=== PATIENT | female | born 1960 | race Caucasian/White ===

== ENCOUNTER → 2024-02-16 | Outpatient (CLI) | payer MEDICARE, OTHER ==
[2024-02-16 13:47] LABS: BASO # 0.1 10^3/uL (0.0-0.2); BASO % 0.9 % (0.0-1.0); EOS # 0.3 10^3/uL (0.0-0.5); EOS % 4.5 % (0.0-3.0); HEMATOCRIT 41.3 % (36.0-47.0); HEMOGLOBIN 13.7 g/dl (12.0-15.5); LYMPH # 1.7 10^3/uL (1.5-5.0); MEAN CORPUSCULAR HEMOGLOBIN 28.8 pg (27.0-33.0); MEAN CORPUSCULAR HGB CONC 33.2 g/dl (32.0-36.5); MEAN CORPUSCULAR VOLUME 86.9 fl (80.0-96.0); MONO # 0.7 10^3/uL (0.0-0.8); MONO % 10.9 % (2.0-8.0); NEUTROPHILS # 3.8 10^3/uL (1.5-8.5); NEUTROPHILS % 56.5 % (36.0-66.0); PLATELET COUNT, AUTOMATED 256 10^3/uL (150-450); RED BLOOD COUNT 4.75 10^6/uL (4.00-5.40); WHITE BLOOD COUNT 6.7 10^3/uL (4.0-10.0)
[2024-02-16 14:02] LABS: HEMOGLOBIN A1c 7.3 % (4.0-6.0)
[2024-02-16 14:12] LABS: ALBUMIN 3.9 G/DL (3.2-5.2); ALKALINE PHOSPHATASE 83 U/L (46-116); ALT/SGPT 68 U/L (7.0-40); AST/SGOT 58 U/L (<34); BILIRUBIN,TOTAL 0.7 MG/DL (0.3-1.2); BLOOD UREA NITROGEN 15 MG/DL (9-23); CALCIUM LEVEL 10.1 MG/DL (8.3-10.6); CARBON DIOXIDE LEVEL 25 MMOL/L (20-31); CHLORIDE LEVEL 105 MMOL/L (98-107); CHOLESTEROL LEVEL 119 MG/DL (<200); CHOLESTEROL RISK RATIO 2.81 (<5); CREATININE FOR GFR 0.91 MG/DL (0.55-1.30); GLOMERULAR FILTRATION RATE > 60.0 (>45); GLUCOSE, FASTING 114 MG/DL (74-106); HDL CHOLESTEROL 42.3 MG/DL (>40); LDL CHOLESTEROL 40.1 MG/DL (<100); NON-HDL-C 76.7 MG/DL; POTASSIUM SERUM 4.5 MMOL/L (3.5-5.1); SODIUM LEVEL 137 MMOL/L (136-145); TOTAL PROTEIN 7.1 G/DL (5.7-8.2); TRIGLYCERIDES LEVEL 183 MG/DL (<150)
[2024-02-16 14:15] LABS: FREE T4 1.05 NG/DL (0.89-1.76); THYROID STIMULATING HORMONE 0.977 uIU/ML (0.55-4.78)
[2024-02-16 14:16] LABS: TOTAL 25(OH) VITAMIN D 46.8 NG/ML (20.0-100.0)
[2024-02-16 14:17] LABS: VITAMIN B12 LEVEL 1470 PG/ML (211-911)
[2024-02-16 15:47] LABS: CREATININE, URINE 79.4 MG/DL; MALB URINE SIEMENS < 3.0 MG/L; MAU/CREAT RATIO 3.7 MCG/MG (0.0-30.0)
== END ==
LOC: M PLALAB 11:45
PROVIDERS: ATTEND Student in an Organized Health Care Education/Training Program
DX: Z76.89 Persons encountering health services in other specified circumstances (principal); E11.9 Type 2 diabetes mellitus without complications; E03.9 Hypothyroidism, unspecified; I10 Essential (primary) hypertension; E53.8 Deficiency of other specified B group vitamins; E55.9 Vitamin D deficiency, unspecified

== ENCOUNTER → 2024-03-15 | Outpatient (REF) | payer MEDICARE, OTHER | LOC: M SFHCPLAZ 10:20 | PROVIDERS: ATTEND Student in an Organized Health Care Education/Training Program | DX: Z00.00 Encounter for general adult medical examination without abnormal findings (principal) ==

== ENCOUNTER → 2024-04-03 | Outpatient (CLI) | payer MEDICARE, OTHER | LOC: M WHC 15:21 | PROVIDERS: ATTEND Student in an Organized Health Care Education/Training Program | DX: Z12.31 Encounter for screening mammogram for malignant neoplasm of breast (principal) ==

== ENCOUNTER → 2024-05-23 | Outpatient (REF) | payer MEDICARE, OTHER | LOC: M SFHCPLAZ 17:05 | PROVIDERS: ATTEND Physician Assistant Medical | DX: R30.0 Dysuria (principal) ==

== ENCOUNTER → 2024-06-19 | Outpatient (CLI) | payer MEDICARE, OTHER ==
[2024-06-19 13:34] LABS: BASO # 0.1 10^3/uL (0.0-0.2); BASO % 0.8 % (0.0-1.0); EOS # 0.2 10^3/uL (0.0-0.5); EOS % 2.9 % (0.0-3.0); HEMATOCRIT 41.9 % (36.0-47.0); HEMOGLOBIN 13.9 g/dl (12.0-15.5); LYMPH # 2.6 10^3/uL (1.5-5.0); LYMPH % 40.3 % (24.0-44.0); MEAN CORPUSCULAR HEMOGLOBIN 28.8 pg (27.0-33.0); MEAN CORPUSCULAR HGB CONC 33.2 g/dl (32.0-36.5); MEAN CORPUSCULAR VOLUME 86.9 fl (80.0-96.0); MONO # 0.6 10^3/uL (0.0-0.8); MONO % 9.3 % (2.0-8.0); NEUTROPHILS # 2.9 10^3/uL (1.5-8.5); NEUTROPHILS % 45.5 % (36.0-66.0); PLATELET COUNT, AUTOMATED 297 10^3/uL (150-450); RED BLOOD COUNT 4.82 10^6/uL (4.00-5.40); WHITE BLOOD COUNT 6.5 10^3/uL (4.0-10.0)
[2024-06-19 14:00] LABS: CREATININE, URINE 88.9 MG/DL
[2024-06-19 14:01] LABS: MALB URINE SIEMENS < 3.0 MG/L; MAU/CREAT RATIO 3.3 MCG/MG (0.0-30.0)
[2024-06-19 14:02] LABS: ALKALINE PHOSPHATASE 74 U/L (46-116); ALT/SGPT 54 U/L (7.0-40); AST/SGOT 34 U/L (<34); BILIRUBIN,TOTAL 0.6 MG/DL (0.3-1.2); BLOOD UREA NITROGEN 12 MG/DL (9-23); CALCIUM LEVEL 9.6 MG/DL (8.3-10.6); CARBON DIOXIDE LEVEL 24 MMOL/L (20-31); CHLORIDE LEVEL 107 MMOL/L (98-107); CHOLESTEROL LEVEL 226 MG/DL (<200); CHOLESTEROL RISK RATIO 5.96 (<5); GLOMERULAR FILTRATION RATE > 60.0 (>45); GLUCOSE, FASTING 145 MG/DL (74-106); HDL CHOLESTEROL 37.9 MG/DL (>40); NON-HDL-C 188.1 MG/DL; POTASSIUM SERUM 4.7 MMOL/L (3.5-5.1); SODIUM LEVEL 138 MMOL/L (136-145); TOTAL PROTEIN 7.1 G/DL (5.7-8.2); TRIGLYCERIDES LEVEL 433 MG/DL (<150)
[2024-06-19 14:36] LABS: HEMOGLOBIN A1c 7.5 % (4.0-6.0)
== END ==
LOC: M PLALAB 09:14
PROVIDERS: ATTEND Student in an Organized Health Care Education/Training Program
DX: Z00.00 Encounter for general adult medical examination without abnormal findings (principal); K76.0 Fatty (change of) liver, not elsewhere classified; N75.0 Cyst of Bartholin's gland; L57.0 Actinic keratosis; E11.9 Type 2 diabetes mellitus without complications; E55.9 Vitamin D deficiency, unspecified

== ENCOUNTER → 2024-08-10 | Outpatient (REF) | payer MEDICARE, OTHER | LOC: M LAB REF 13:11 | PROVIDERS: ATTEND Student in an Organized Health Care Education/Training Program | DX: L82.1 Other seborrheic keratosis (principal); L57.0 Actinic keratosis ==

== ENCOUNTER → 2024-09-26 | Outpatient (CLI) | payer MEDICARE, OTHER ==
[2024-09-26 13:26] LABS: BASO % 0.6 % (0.0-1.0); EOS # 0.2 10^3/uL (0.0-0.5); HEMATOCRIT 40.5 % (36.0-47.0); HEMOGLOBIN 13.3 g/dl (12.0-15.5); LYMPH # 2.6 10^3/uL (1.5-5.0); LYMPH % 38.2 % (24.0-44.0); MEAN CORPUSCULAR HEMOGLOBIN 29.7 pg (27.0-33.0); MEAN CORPUSCULAR HGB CONC 32.8 g/dl (32.0-36.5); MEAN CORPUSCULAR VOLUME 90.4 fl (80.0-96.0); MONO # 0.7 10^3/uL (0.0-0.8); MONO % 9.9 % (2.0-8.0); NEUTROPHILS # 3.2 10^3/uL (1.5-8.5); NEUTROPHILS % 47.3 % (36.0-66.0); PLATELET COUNT, AUTOMATED 303 10^3/uL (150-450); RED BLOOD COUNT 4.48 10^6/uL (4.00-5.40); WHITE BLOOD COUNT 6.7 10^3/uL (4.0-10.0)
[2024-09-26 13:29] LABS: ALBUMIN 3.9 G/DL (3.2-5.2); ALKALINE PHOSPHATASE 75 U/L (35-104); ALT/SGPT 56 U/L (7.0-40); AST/SGOT 42 U/L (<34); BILIRUBIN,TOTAL 0.8 MG/DL (0.3-1.2); BLOOD UREA NITROGEN 13 MG/DL (9-23); CALCIUM LEVEL 9.8 MG/DL (8.3-10.6); CARBON DIOXIDE LEVEL 27 MMOL/L (20-31); CHLORIDE LEVEL 110 MMOL/L (98-107); CHOLESTEROL LEVEL 104 MG/DL (<200); CHOLESTEROL RISK RATIO 2.84 (<5); CREATININE FOR GFR 0.86 MG/DL (0.55-1.30); GLOMERULAR FILTRATION RATE > 60.0 (>45); GLUCOSE, FASTING 151 MG/DL (74-106); HDL CHOLESTEROL 36.5 MG/DL (>40); LDL CHOLESTEROL 39.3 MG/DL (<100); NON-HDL-C 67.5 MG/DL; POTASSIUM SERUM 4.5 MMOL/L (3.5-5.1); SODIUM LEVEL 142 MMOL/L (136-145); TOTAL PROTEIN 7.1 G/DL (5.7-8.2); TRIGLYCERIDES LEVEL 141 MG/DL (<150)
[2024-09-26 14:06] LABS: CREATININE, URINE 103.4 MG/DL; MALB URINE SIEMENS < 3.0 MG/L
== END ==
LOC: M PLALAB 08:48
PROVIDERS: ATTEND Student in an Organized Health Care Education/Training Program
DX: E11.9 Type 2 diabetes mellitus without complications (principal); E55.9 Vitamin D deficiency, unspecified; E78.1 Pure hyperglyceridemia; I10 Essential (primary) hypertension

== ENCOUNTER 2025-01-18 20:56 | Emergency (ER) | payer MEDICARE, OTHER ==
[~2025-01-18] VITALS: Ht 157.5 cm; Wt 106.4 kg
[2025-01-18 21:01] VITALS: TEMP 98.8
[2025-01-18] MEDS ORDERED: ACET-683 PO (21:03)
[2025-01-18 21:31] LABS: KETONE, URINE AUTO RFX NEGATIVE (NEGATIVE); LEUKOCYTE ESTERASE UR AUTO RFX NEGATIVE (NEGATIVE); NITRITE, URINE AUTO RFX NEGATIVE (NEGATIVE); RBC, URINE AUTO RFX 2 /HPF (0-3); SQUAM EPITHELIAL CELL UR AURFX 0 /HPF (0-6); WBC, URINE AUTO RFX 1 /HPF (0-3)
[2025-01-18 21:37] LABS: BASO # 0.1 10^3/uL (0.0-0.2); BASO % 0.6 % (0.0-1.0); EOS # 0.1 10^3/uL (0.0-0.5); EOS % 0.8 % (0.0-3.0); HEMATOCRIT 39.8 % (36.0-47.0); HEMOGLOBIN 13.6 g/dl (12.0-15.5); LYMPH # 1.4 10^3/uL (1.5-5.0); LYMPH % 16.2 % (24.0-44.0); MEAN CORPUSCULAR HEMOGLOBIN 29.2 pg (27.0-33.0); MEAN CORPUSCULAR HGB CONC 34.2 g/dl (32.0-36.5); MEAN CORPUSCULAR VOLUME 85.4 fl (80.0-96.0); MONO # 0.3 10^3/uL (0.0-0.8); MONO % 3.2 % (2.0-8.0); NEUTROPHILS # 6.9 10^3/uL (1.5-8.5); NEUTROPHILS % 78.1 % (36.0-66.0); PLATELET COUNT, AUTOMATED 285 10^3/uL (150-450); RED BLOOD COUNT 4.66 10^6/uL (4.00-5.40); WHITE BLOOD COUNT 8.8 10^3/uL (4.0-10.0)
[2025-01-18 22:02] LABS: LIPASE 67 U/L (12-53)
[2025-01-18 22:04] LABS: ALBUMIN 3.9 G/DL (3.2-5.2); ALKALINE PHOSPHATASE 75 U/L (35-104); ALT/SGPT 42 U/L (7.0-40); AST/SGOT 33 U/L (<34); BILIRUBIN,DIRECT 0.2 MG/DL (<0.4); BILIRUBIN,TOTAL 0.7 MG/DL (0.3-1.2); BLOOD UREA NITROGEN 12 MG/DL (9-23); CALCIUM LEVEL 9.4 MG/DL (8.3-10.6); CARBON DIOXIDE LEVEL 19 MMOL/L (20-31); CHLORIDE LEVEL 106 MMOL/L (98-107); CREATININE FOR GFR 0.98 MG/DL (0.55-1.30); GLOMERULAR FILTRATION RATE > 60.0 (>45); GLUCOSE, FASTING 344 MG/DL (74-106); POTASSIUM SERUM 4.3 MMOL/L (3.5-5.1); SODIUM LEVEL 139 MMOL/L (136-145); TOTAL PROTEIN 7.2 G/DL (5.7-8.2)
[2025-01-19] MEDS: KETOROLAC 30 MG/ML 1ML VIAL IV ONE ×2 (00:23→04:07)
[2025-01-19] MEDS ORDERED: ISOVUE-370 76% 100ML VIAL As Ordered ONE (00:23)
[2025-01-19] MEDS ORDERED: FLOM0.4C39 PO (03:26)
[2025-01-19] MEDS ORDERED: KETO10TAB PO (03:26)
[2025-01-19 03:30] VITALS: BP 141/69
[2025-01-19 03:45] VITALS: O2SAT 96
[2025-01-19] MEDS: TAMSULOSIN 0.4 MG CAP PO ONE (04:06)
== END 2025-01-19 04:09 | disposition home or self-care (01) ==
LOC: M ED 20:56
DX: N20.1 Calculus of ureter (principal); E11.9 Type 2 diabetes mellitus without complications; K76.0 Fatty (change of) liver, not elsewhere classified; E78.5 Hyperlipidemia, unspecified; Z88.2 Allergy status to sulfonamides
CPT/HCPCS: 74177; 80053; 81001; 82248; 83690; 85025; 96374; 96376; 99284; J1885; Q9967

== ENCOUNTER → 2025-01-24 | Outpatient (CLI) | payer MEDICARE, OTHER ==
[~2025-01-24] MED LIST: ACET-683 PO; FLOM0.4C39 PO; KETO10TAB PO
[2025-01-24 11:21] LABS: BLOOD UREA NITROGEN 15 MG/DL (9-23); CALCIUM LEVEL 9.9 MG/DL (8.3-10.6); CARBON DIOXIDE LEVEL 24 MMOL/L (20-31); CHLORIDE LEVEL 106 MMOL/L (98-107); CREATININE FOR GFR 0.86 MG/DL (0.55-1.30); GLOMERULAR FILTRATION RATE > 60.0 (>45); GLUCOSE, FASTING 117 MG/DL (74-106); POTASSIUM SERUM 4.4 MMOL/L (3.5-5.1); SODIUM LEVEL 141 MMOL/L (136-145)
== END ==
LOC: M PLALAB 09:09
PROVIDERS: ATTEND Physician Assistant Medical
DX: Z87.442 Personal history of urinary calculi (principal)

== ENCOUNTER → 2025-03-22 | Outpatient (CLI) | payer MEDICARE, OTHER ==
[~2025-03-22] MED LIST changes: -FLOM0.4C39 PO; +TAMS-18 PO
[2025-03-22 13:36] LABS: BASO % 0.5 % (0.0-1.0); EOS # 0.2 10^3/uL (0.0-0.5); EOS % 2.5 % (0.0-3.0); HEMATOCRIT 41.2 % (36.0-47.0); HEMOGLOBIN 13.4 g/dl (12.0-15.5); LYMPH # 2.4 10^3/uL (1.5-5.0); LYMPH % 32.4 % (24.0-44.0); MEAN CORPUSCULAR HEMOGLOBIN 28.6 pg (27.0-33.0); MEAN CORPUSCULAR HGB CONC 32.5 g/dl (32.0-36.5); MONO # 0.6 10^3/uL (0.0-0.8); MONO % 8.6 % (2.0-8.0); NEUTROPHILS # 4.1 10^3/uL (1.5-8.5); NEUTROPHILS % 55.2 % (36.0-66.0); PLATELET COUNT, AUTOMATED 316 10^3/uL (150-450); RED BLOOD COUNT 4.68 10^6/uL (4.00-5.40); WHITE BLOOD COUNT 7.3 10^3/uL (4.0-10.0)
[2025-03-22 14:02] LABS: CREATININE, URINE 112.1 MG/DL; MAU/CREAT RATIO 2.6 MCG/MG (0.0-30.0)
[2025-03-22 14:06] LABS: THYROID STIMULATING HORMONE 1.58 uIU/ML (0.55-4.78)
[2025-03-22 14:07] LABS: BILIRUBIN,TOTAL 0.9 MG/DL (0.3-1.2); CALCIUM LEVEL 9.5 MG/DL (8.3-10.6); CHOLESTEROL RISK RATIO 2.78 (<5); CREATININE FOR GFR 0.82 MG/DL (0.55-1.30); FREE T4 1.26 NG/DL (0.89-1.76); GLOMERULAR FILTRATION RATE 78.8 (>45); HDL CHOLESTEROL 38.4 MG/DL (>40); LDL CHOLESTEROL 39.6 MG/DL (<100); NON-HDL-C 68.6 MG/DL; POTASSIUM SERUM 4.6 MMOL/L (3.5-5.1); TOTAL PROTEIN 7.2 G/DL (5.7-8.2)
[2025-03-22 14:22] LABS: HEMOGLOBIN A1c 7.1 % (4.0-6.0)
== END ==
LOC: M PLALAB 10:04
PROVIDERS: ATTEND Student in an Organized Health Care Education/Training Program
DX: E11.9 Type 2 diabetes mellitus without complications (principal); E55.9 Vitamin D deficiency, unspecified; I10 Essential (primary) hypertension; E03.9 Hypothyroidism, unspecified

== ENCOUNTER → 2025-03-28 | Outpatient (REF) | payer MEDICARE, OTHER | LOC: M SFHCPLAZ 16:26 | PROVIDERS: ATTEND Student in an Organized Health Care Education/Training Program | DX: Z53.21 Procedure and treatment not carried out due to patient leaving prior to being seen by health care provider (principal); E11.9 Type 2 diabetes mellitus without complications; K76.0 Fatty (change of) liver, not elsewhere classified; E55.9 Vitamin D deficiency, unspecified ==

== ENCOUNTER → 2025-07-26 | Outpatient (CLI) | payer MEDICARE, OTHER | LOC: M WHC 16:22 | PROVIDERS: ATTEND Family Medicine | DX: Z12.31 Encounter for screening mammogram for malignant neoplasm of breast (principal); Z53.9 Procedure and treatment not carried out, unspecified reason ==

== ENCOUNTER → 2025-08-16 | Outpatient (CLI) | payer MEDICARE | LOC: M WHC 11:58 | PROVIDERS: ATTEND Family Medicine | DX: Z12.31 Encounter for screening mammogram for malignant neoplasm of breast (principal); R92.313 Mammographic fatty tissue density, bilateral breasts ==

== ENCOUNTER → 2025-09-27 | Outpatient (REF) | payer MEDICARE, OTHER | LOC: M SFHCPLAZ 07:16 | PROVIDERS: ATTEND Family Medicine | DX: Z53.9 Procedure and treatment not carried out, unspecified reason (principal) ==

== ENCOUNTER → 2025-09-28 | Outpatient (CLI) | payer MEDICARE, OTHER ==
[2025-09-28 14:23] LABS: ALT/SGPT 44.0 U/L (7.0-40); AST/SGOT 35.0 U/L (<34); CALCIUM LEVEL 9.2 MG/DL (8.3-10.6); CARBON DIOXIDE LEVEL 24.0 MMOL/L (20-31); CHLORIDE LEVEL 107.0 MMOL/L (98-107); CHOLESTEROL LEVEL 107.0 MG/DL (<200); CHOLESTEROL RISK RATIO 3.04 (<5); CREATININE FOR GFR 0.85 MG/DL (0.55-1.30); GLOMERULAR FILTRATION RATE 75.0 (>45); LDL CHOLESTEROL 37.5 MG/DL (<100); NON-HDL-C 71.9 MG/DL; POTASSIUM SERUM 4.6 MMOL/L (3.5-5.1); SODIUM LEVEL 144.0 MMOL/L (136-145); TRIGLYCERIDES LEVEL 172.0 MG/DL (<150)
[2025-09-28 14:25] LABS: PLATELET COUNT, AUTOMATED 315 10^3/uL (150-450)
[2025-09-28 14:32] LABS: FREE T4 1.07 NG/DL (0.89-1.76)
[2025-09-28 14:33] LABS: TOTAL 25(OH) VITAMIN D 48.0 NG/ML (20.0-100.0)
[2025-09-28 14:48] LABS: ESTIMATED AVERAGE GLUCOSE 166.0 MG/DL (60-110)
== END ==
LOC: M PLALAB 09:08
PROVIDERS: ATTEND Family Medicine
DX: E03.9 Hypothyroidism, unspecified (principal); E11.9 Type 2 diabetes mellitus without complications; E55.9 Vitamin D deficiency, unspecified; I10 Essential (primary) hypertension

== ENCOUNTER → 2025-10-04 | Outpatient (REF) | payer MEDICARE, OTHER | LOC: M SFHCPLAZ 07:45 | PROVIDERS: ATTEND Family Medicine | DX: Z53.9 Procedure and treatment not carried out, unspecified reason (principal) ==

== ENCOUNTER → 2025-11-02 | Outpatient (CLI) | payer MEDICARE, OTHER | LOC: M WHC 08:22 | PROVIDERS: ATTEND Family Medicine | DX: Z13.820 Encounter for screening for osteoporosis (principal); M81.0 Age-related osteoporosis without current pathological fracture ==